=== PATIENT | female | born 1960 | race African-American/Black ===

== ENCOUNTER 2023-09-12 11:23 | Day surgery (SDC) | payer OTHER, SELFPAY ==
[2023-09-12 12:13] VITALS: BP 141/80; PULSE 85; RESP 18; TEMP 36.6; O2SAT 96
[2023-09-12] MEDS: Lactated Ringers 1,000 ML 100 ML IVCONT (12:18)
--- NOTE | 2023-09-12 12:48 | P.CONAN_ITS ---
HPI - Anesthesia Eval Consult details Narrative: for colonoscopy [facility] Past Medical History Medical History GERD (gastroesophageal reflux disease) Osteoarthritis Elevated cholesterol Family History Family history of problems with anesthesia: No Surgical History Surgical History History of surgery History of Hx of tonsillectomy H/O colonoscopy History of Problems with Anesthesia: No Social History Social History (Updated 09/10/23 @ 10:46 by Whitley Gonsales RN) Patient Tobacco Use Status: Current everyday Tobacco user Tobacco use type: Cigarette Cigarettes Per Day: 10 Have you been hit, kicked, punched, or otherwise hurt by someone within the past year? If so, by whom?: No Are you DNR?: No Advance Directives: No Advance Directives Information Provided: Yes Recently lost weight without trying: No Eating poorly because of decreased appetite: No Nutrition Risks: No Nutritional Risk Patient : No Meds Allergies Allergy/AdvReac Type Severity Reaction Status Date / Time penicillin V Allergy Unknown unsure Verified 10/08/15 00:00 Active Medications: Current Medications Lactated Ringer's (Lr) 1,000 mls @ 100 mls/hr IVCONT .Q10H DINH Last Admin: 09/12/23 12:18 Dose: 100 mls/hr Home Medications Medication Instructions Recorded Confirmed Last Taken Type atorvastatin 20 mg tablet 20 mg PO BEDTIME 09/10/23 09/10/23 Unknown History cyclobenzaprine 10 mg tablet 10 mg PO TID PRN Muscle Spasm 09/10/23 09/10/23 Unknown History hydroxyzine HCl 25 mg tablet 25 mg PO TID PRN Anxiety 09/10/23 09/10/23 Unknown History naproxen 500 mg tablet 500 mg PO BID PRN Pain 09/10/23 09/10/23 Unknown History omega 4-sid-vnf-fish oil 1,000 mg 1 cap PO DAILY 09/10/23 09/10/23 Unknown History (120 mg-180 mg) capsule (Fish Oil) omeprazole 20 mg capsule,delayed 20 mg PO DAILY 09/10/23 09/10/23 Unknown History release trazodone 50 mg tablet 50 mg PO BEDTIME 09/10/23 09/10/23 Unknown History Exam Exam Date and Time: September 12, 2023 1248 Height,Weight and Vital Signs: Height 5 ft 2 in Weight 74.389 kg Last Vital Signs Temp 97.8 F 09/12/23 12:13 Pulse 85 09/12/23 12:13 Resp 18 09/12/23 12:13 BP 141/80 H 09/12/23 12:13 Pulse Ox 96 09/12/23 12:13 O2 Del Method Room Air 09/12/23 12:13 Airway Mallampati Class: II TM Dist: <=3cm Neck ROM: Full Denture: Upper Heart: ok Lungs: ok Assessment and Plan Assessment Anesthesia Assessment: Anesthesia Plan Discussed and Chart Reviewed Final Anesthetic Review Family History of Problems with Anesthesia: No History of Problems with Anesthesia: No NPO: Yes ASA Class: II Final Preanesthetic Review: No Changes in Pt Med Stat, Meds/Allgs Chart Reviewed, Consent Obtained/Reviewed and Anes Risks/Benef Reviewed Patient Risk: Intermediate Procedure Risk: Low Anesthetic Plan Anesthetic Plan: MAC: and Agree w/ Assess. and Plan Disposition: Standard PACU
--- NOTE | 2023-09-12 13:10 | MHC.SHP ---
Pre-Procedural Eval Section A Date of Service: 09/12/23 The patient is an INPATIENT: No Changes since office visit: No Cold of Flu in the past 2 weeks, No New Medical Problems, No Changes in Medication and No Patient answered all questions The History & Physical has been completed within 30 days and I have reviewed it.: Yes Section B Chief Complaint: screening Allergies: Allergies Allergy/AdvReac Type Severity Reaction Status Date / Time penicillin V Allergy Unknown unsure Verified 10/08/15 00:00 Plan I have reviewed the history and physical and performed a pertinent physical examination on my patient. No changes have occurred unless specified. Time Spent With Patient Time: Total time managing care of this patient today ____ minutes.
--- NOTE | 2023-09-12 13:44 | PM.OP ---
Brief Operative Note Date of Service: 09/12/23 Pre-op diagnosis: screening Post-op diagnosis: same Procedure: colon Surgeon: Marquis Hdz MD Anesthesia: MAC Was an [employer] Supervisor used for this Procedure?: No Estimated blood loss (mL): 2 Pathology: other Condition: stable Disposition: PACU
[2023-09-12 13:45] VITALS: BP 126/78; PULSE 86; RESP 16; TEMP 36.2; O2SAT 96
[2023-09-12 14:01] VITALS: BP 154/91; PULSE 74; RESP 17; TEMP 36.1; O2SAT 97
--- NOTE | 2023-09-12 16:56 | OP_ITS ---
DATE OF SERVICE: 09/12/2023 SURGEON: Marquis Hdz MD INDICATIONS: Colon cancer screening. PREOPERATIVE DIAGNOSIS: POSTOPERATIVE DIAGNOSIS: PROCEDURE PERFORMED: Colonoscopy to the terminal ileum with biopsy. ESTIMATED BLOOD LOSS: COMPLICATIONS: ANESTHESIA: Monitored anesthesia care. ASSISTANTS: SPECIMENS: DESCRIPTION OF PROCEDURE: History and physical performed. The risks and benefits of the procedure were explained to the patient. Informed consent was obtained. The patient was placed in the left lateral decubitus position. A digital rectal exam was performed and it was found to be normal. The Olympus pediatric video colonoscope was introduced into the rectum and advanced to the cecum. The cecum was identified by transillumination, palpation, identification of ileocecal valve. Examination was performed. The scope was removed. She tolerated the procedure well and was taken to recovery area in stable condition. FINDINGS: The terminal ileum was not examined. The visualized colonic mucosa was within normal limits without evidence of masses or ulcers. A single polyp measuring less than 5 mm was identified at 20 cm from the anal verge. This was removed using a biopsy forceps. No other polyps were identified. Retroflexed examination showed moderate-sized internal hemorrhoids. There was moderate sigmoid diverticulosis with scattered diverticula throughout the remainder of the colon. The quality of prep was good. IMPRESSION: Colon polyp. RECOMMENDATION: Follow up the biopsy results. MD GATO Warren/FARNAZL / [id number]
== END 2023-09-12 14:39 | disposition home or self-care (01) ==
PROVIDERS: PCP Internal Medicine; Visit Provider Internal Medicine Gastroenterology
PROC: 0DJD8ZZ Inspection of Lower Intestinal Tract, Via Natural or Artificial Opening Endoscopic (ICD-10-PCS; CPT 45378; principal; 2023-09-12 13:00)
DX: Z12.11 Encounter for screening for malignant neoplasm of colon (principal); K63.5 Polyp of colon; K64.8 Other hemorrhoids; K21.9 Gastro-esophageal reflux disease without esophagitis; E78.5 Hyperlipidemia, unspecified; M19.90 Unspecified osteoarthritis, unspecified site; Z79.1 Long term (current) use of non-steroidal anti-inflammatories (NSAID); Z79.899 Other long term (current) drug therapy; Z88.0 Allergy status to penicillin; F17.210 Nicotine dependence, cigarettes, uncomplicated
CPT/HCPCS: 45380; 88305

== ENCOUNTER 2024-06-18 12:52 | Outpatient (AMB) | payer OTHER, SELFPAY ==
--- NOTE | 2024-06-18 13:05 | AM.OFFWIN_ITS ---
Intake Vital Signs 06/18/24 13:06 06/18/24 13:28 Height 5 ft 2 in Weight 162 lb BMI 29.6 BP 162/84 H 140/90 H Blood Pressure Location Rt brachial Rt brachial Position Sitting Sitting Pulse 80 Pulse Source Auscultation Temp 98.3 F Temp Source Oral Intake Visit Reasons: Sore on LT Foot Intake Note: pt c/o sore on LT foot. Started with moswuito bite and developed sore Patient Tobacco Use Status: Current everyday Tobacco user Allergies penicillin V Allergy (Unknown, Verified 06/18/24 13:06) unsure Do you need a note to return to daycare/school/sports/work: No HPI HPI Comments History of Present Illness Details Patient is a 63-year-old female complaining of a wound on her left foot that started with a mosquito bite and does not seem to be healing. She said she is using Neosporin and hydrogen peroxide. She denies a history of diabetes. [facility] Medical History (Updated 06/18/24 @ 13:31 by Estrellita Bullard PA-C) GERD (gastroesophageal reflux disease) Osteoarthritis Elevated cholesterol Surgical History History of surgery History of Hx of tonsillectomy H/O colonoscopy Social History (Updated 09/10/23 @ 10:46 by Whitley Gonsales RN) Patient Tobacco Use Status: Current everyday Tobacco user Tobacco use type: Cigarette Cigarettes Per Day: 10 Review of Systems Const All systems reviewed & are unremarkable except as noted in HPI and below Physical Exam Vital Signs: Last Vital Signs Temp 98.3 F 06/18/24 13:06 Pulse 80 06/18/24 13:06 BP 162/84 H 06/18/24 13:06 BMI result Body Mass Index 29.6 Const General: cooperative, healthy appearing, comfortable, no acute distress and well developed Orientation/consciousness: patient oriented x3 Limitations: no limitations Skin Other: medial dorsal aspect of left foot has a 2 cm round, scabbed area. not fluctuant, no warmth, not weeping Neuro General: patient oriented x3 Assessment & Plan Assessment & Plan (1) Scab: Code(s): R23.4 - Changes in skin texture Plan: Recommended using Aquaphor twice daily, recommended stopping the hydrogen peroxide. If wound does not heal, she should follow up with her PCP. Repeat blood pressure was 140 systolic, recommended she follow up with her PCP as last few visit she has had here it has been over 150 systolic. Plan See above Coding Level of Care Code New Pt Level 3 (90265) Diagnoses Scab R23.4
[2024-06-18 13:06] VITALS: BP 162/84; PULSE 80; TEMP 36.8; BMI 29.6
[2024-06-18 13:28] VITALS: BP 140/90
== END 2024-06-18 13:29 | disposition home or self-care (01) ==
PROVIDERS: PCP Internal Medicine; Visit Provider Physician Assistant
DX: R23.4 Changes in skin texture (principal)
CPT/HCPCS: 99203

== ENCOUNTER 2024-07-03 13:39 | Outpatient (AMB) | payer OTHER, SELFPAY ==
--- NOTE | 2024-07-03 14:01 | MHC.OFFWIV ---
Intake Vital Signs 07/03/24 14:02 Height 5 ft 2 in Weight 161 lb BMI 29.4 BP 130/90 H Blood Pressure Location Rt brachial Position Sitting Pulse 65 Pulse Source Pulse Oximeter Pulse Oximetry (%) 98 Oxygen Delivery Method Room Air Intake Visit Reasons: EP- Rash on arms and hands Intake Note: Patient here for rash on palm of hands and are very itchy. started about 1 week ago. Patient Tobacco Use Status: Current everyday Tobacco user Allergies penicillin V Allergy (Unknown, Verified 07/03/24 14:03) unsure Do you need a note to return to daycare/school/sports/work: No HPI HPI Comments History of Present Illness Details Patient is a 63-year-old female complaining of an itchy rash on her right forearm that has been there for about a week. She also noticed secondary rash on the palms of her hands that erupted suddenly a few days ago. It is different from the rash on her forearm. She states that she has these clear, firm, non itchy nodules on her palms and she does not know what it is. She denies any fevers and any new medications. [facility] Medical History (Updated 07/03/24 @ 14:39 by Estrellita Bullard PA-C) GERD (gastroesophageal reflux disease) Osteoarthritis Elevated cholesterol Surgical History History of surgery History of Hx of tonsillectomy H/O colonoscopy Social History (Updated 09/10/23 @ 10:46 by Whitley Gonsales RN) Patient Tobacco Use Status: Current everyday Tobacco user Tobacco use type: Cigarette Cigarettes Per Day: 10 Review of Systems Const All systems reviewed & are unremarkable except as noted in HPI and below Physical Exam Vital Signs: Last Vital Signs Pulse 65 07/03/24 14:02 BP 130/90 H 07/03/24 14:02 Pulse Ox 98 07/03/24 14:02 Oxygen Delivery Method Room Air 07/03/24 14:02 BMI result Body Mass Index 29.4 Const General: cooperative, healthy appearing, comfortable and no acute distress Orientation/consciousness: patient oriented x3 Limitations: no limitations HEENT Head: Yes normal to inspection Eyes General: appearance normal, both eyes and all related structures Resp Effort & Inspection: normal respiratory effort and able to speak in complete sentences Skin Other: A streaky, 3cm linear maculopapular rash with crusted lesions on right forearm. Neuro General: patient oriented x3 Assessment & Plan Assessment & Plan (1) Allergic dermatitis: Code(s): L23.9 - Allergic contact dermatitis, unspecified cause Plan: Recommended using [id number]-[id number] cortisone cream as a very small area of poison homa. As far as the rash on her hands go, I recommended she follow up with her PCP for possibility of a referral to Dermatology Plan See above Coding Level of Care Code New Pt Level 3 (49222) Diagnoses Allergic dermatitis L23.9
[2024-07-03 14:02] VITALS: BP 130/90; PULSE 65; O2SAT 98; BMI 29.4
== END 2024-07-03 14:43 | disposition home or self-care (01) ==
PROVIDERS: PCP Internal Medicine; Visit Provider Physician Assistant
DX: L23.9 Allergic contact dermatitis, unspecified cause (principal)
CPT/HCPCS: 99213

== ENCOUNTER 2024-11-18 15:45 | Emergency (ER) | payer OTHER, SELFPAY ==
[2024-11-18 16:19] VITALS: BP 178/87; PULSE 91; RESP 20; TEMP 36; O2SAT 100; BMI 29.3
--- NOTE | 2024-11-18 16:22 | ECG_ITS ---
Test Reason : HTN Blood Pressure : */* mmHG Vent. Rate : 85 BPM Atrial Rate : 85 BPM P-R Int : 164 ms QRS Dur : 86 ms QT Int : 372 ms P-R-T Axes : 65 -23 41 degrees QTcB Int : 442 ms Normal sinus rhythm Possible Left atrial enlargement Borderline ECG No previous ECGs available Referred By: Evan Saavedra Electronically Signed By: Juan De Los Santos
--- NOTE | 2024-11-18 16:22 | ED_ITS ---
HPI - General Adult General Chief complaint: General Medical Stated complaint: High BP Time Seen by Provider: 11/18/24 20:25 Source: patient Mode of arrival: ambulatory Limitations: no limitations History of Present Illness ED Provider: Evan Saavedra HPI narrative: 64-year-old female history of dermatitis, GERD, cholesterol presents to ED for elevated blood pressures at home. Patient states today systolic was in the 170s. Patient denies any headache, chest pain, shortness of breath, dizziness, slurred speech, facial droop, or paralysis of extremities. Related Data Home Medications ?Medication ?Instructions ?Recorded ?Confirmed atorvastatin 20 mg tablet 20 mg PO BEDTIME 09/10/23 09/10/23 cyclobenzaprine 10 mg tablet 10 mg PO TID PRN Muscle Spasm 09/10/23 09/10/23 hydroxyzine HCl 25 mg tablet 25 mg PO TID PRN Anxiety 09/10/23 09/10/23 naproxen 500 mg tablet 500 mg PO BID PRN Pain 09/10/23 09/10/23 omeprazole 20 mg capsule,delayed 20 mg PO DAILY 09/10/23 09/10/23 release trazodone 50 mg tablet 50 mg PO BEDTIME 09/10/23 09/10/23 Allergies Allergy/AdvReac Type Severity Reaction Status Date / Time penicillin V Allergy Unknown unsure Verified 11/18/24 16:20 Review of Systems 2 Review of Systems: Asymptomatic hypertension. Yes all other systems are reviewed and are negative [facility] Past Medical History Medical History (Updated 11/18/24 @ 20:39 by SARAH Tilley) GERD (gastroesophageal reflux disease) Osteoarthritis Elevated cholesterol Surgical History History of surgery History of Hx of tonsillectomy H/O colonoscopy Social History Social History (Updated 09/10/23 @ 10:46 by Whitley Gonsales RN) Patient Tobacco Use Status: Current everyday Tobacco user Tobacco use type: Cigarette Cigarettes Per Day: 10 Advance Directives: No Advance Directives Information Provided: No Physical Exam ED Vital Signs: Vital Signs - 24 hr 11/18/24 16:19 11/18/24 20:21 11/18/24 20:46 Temperature 96.8 F 98.8 F 98.8 F Pulse Rate 91 85 85 Respiratory Rate 20 16 16 Blood Pressure 178/87 H 179/93 H 179/93 H Pulse Oximetry 100 96 96 Oxygen Delivery Method Room Air Room Air Room Air BMI result Body Mass Index 29.3 Const General: cooperative, healthy appearing, comfortable, no acute distress, well developed, alert, awake and Physically active Orientation/consciousness: patient oriented x3 [facility] Head: Yes normal to inspection, Yes No palpable skull fracture present, Yes normocephalic and Yes atraumatic Ears: hearing grossly normal bilaterally, external ears normal, TM's normal bilaterally, TM normal on the right, TM normal on the left, EAC's normal, mastoids normal and no periauricular adenopathy Throat: Yes posterior oropharynx normal, Yes tonsils normal and Yes uvula midline Eyes General: appearance normal, both eyes and all related structures Neck Neck: Yes normal visual inspection, Yes full ROM, Yes no lymphadenopathy, Yes no meningeal signs, Yes trachea midline, Yes supple, No anterior neck swelling and No tender Chest Chest palpation & inspection: normal inspection of the chest and normal palpation of entire chest wall Resp Effort & Inspection: normal respiratory effort and able to speak in complete sentences Auscultation: clear to auscultation bilaterally Cardio Jugular venous distension: no JVD Heart sounds: S1 normal heart sound present and S2 normal heart sound present GI Inspection: Yes normal to inspection Palpation (GI): Soft to palpation, not firm, nontender, no guarding and not rigid General: Yes no CVA tenderness Back/Spine/Pelvis Back: no CVA tenderness and No back tenderness Skin General skin exam: no rashes or lesions noted, elasticity normal and turgor normal Neuro General: patient oriented x3, gait normal, tone normal, moves all extremities, Normal light touch and pain sensation, no meningeal signs, no focal motor deficits, CN's II-XI intact bilaterally and normal sensation to monofilament Extrem General: Yes normal to inspection, Yes full ROM and Yes capillary refill normal Psych Appearance: grossly normal, well kempt and not disheveled Course Course Course Narrative: RME: 64-year-old female presents to ED for asymptomatic hypertension. Patient states her blood pressure today was 170/87. Patient was informed by her PCP to document her blood pressure so he can be made aware in case need to be started on med but patient never was compliant. Once again patient is asymptomatic. We will do EKG basic labs. Medical Decision Making Medical Decision Making MDM Narrative: 64-year-old female presents to the ED for evaluation for asymptomatic elevated blood pressure. Patient's blood pressure systolic 170s. Patient denies any headache, chest pain, shortness of breath, abdominal pain or any neuro symptoms. Not suspecting hypertensive urgency/emergency. EKG negative STEMI. troponin without chest pain negative. Kidney function is normal. Patient informed to record her blood pressures 2 to 3 times a day to see her primary care provider so he/she can start her on medication. This is a first-time seen patient in the ED with systolic blood pressures in the 170s. Patient informed we would not prescribe any hypertensive medication to the possibility of white coat hypertension but recommend her calling her primary care doctor tomorrow to schedule an earlier appointment record her blood pressures so her primary care provider can seen them and decide if she need HTN meds.. Not suspecting SD, PE, stroke, renal arterial occlusion, kidney failure, or any other life threatening etiologies. Patient explained worrisome signs and informed to return to the ED immediately. NIH score is 0. Differential Diagnosis Differential Diagnoses: The differential diagnosis associated with the presentation includes Admission/Observation Consideration of admission/observation: Escalation of care including admission/observation considered Lab Data [facility] Lab Attestation statement: I reviewed the patient's lab results. 11/18/24 16:46 11/18/24 16:46 Labs: Lab Results 11/18/24 11/18/24 Range/Units 16:46 19:23 WBC 11.0 H (4.8-10.8) X10*3/uL RBC 4.48 (4.20-5.50) X10*6/uL Hgb 13.2 (12.0-16.0) g/dl Hct 38.0 (37.0-47.0) % MCV 84.8 (80.0-98.0) fL MCH 29.5 (27.0-33.0) pg MCHC 34.7 (31.0-35.0) g/dl RDW 16.8 H (11.0-16.0) % Plt Count 269 (160-400) X10*3/uL MPV 10.2 (9.4-12.3) fL Immature Gran % (Auto) 0.3 (0.0-0.4) % Neut % (Auto) 67.9 (45-73) % Lymph % (Auto) 22.9 (20-40) % [place] % (Auto) 5.3 (2-11) % Eos % (Auto) 3.0 (0-4) % Baso % (Auto) 0.6 (0-2) % Lymph # (Auto) 2.5 (1.2-4.9) X10*3/uL [place] # (Auto) 0.6 (0.1-1.2) X10*3/uL Eos # (Auto) 0.3 (0.0-0.4) X10*3/uL Baso # (Auto) 0.1 (0.0-0.2) X10*3/uL Abs Immat Gran (auto) 0.03 (0.00-0.03) X10*3/uL Absolute Neuts (auto) 7.5 (2.0-8.3) x10*3/uL Absolute Nucleated RBC 0.000 (0.0-0.012) X10*3/uL Nucleated RBC % (auto) 0.0 (0.0-0.2) /100WBC PT 11.2 (10.9-12.4) SEC INR 1.0 (0.9-1.1) APTT 29.5 (26.0-36.8) SEC Sodium 143 (135-145) mmol/L Potassium 3.4 (3.3-5.1) mmol/L Chloride 112 H (96-108) mmol/L Carbon Dioxide 25 (22-29) mmol/L Anion Gap 9 L (12-20) BUN 9 (9-16) mg/dL Creatinine 0.71 (0.5-1.4) mg/dL Estim Creat Clear Calc 75.7 Estimated GFR > 60 Random Glucose 98 (60-115) mg/dL Calcium 9.3 (8.4-10.2) mg/dL Total Bilirubin 0.6 (0.0-1.0) mg/dL AST 24 (5-31) U/L ALT 12 (0-31) U/L Alkaline Phosphatase 95 (39-117) U/L Troponin I High Sens < 2.7 (<3.5-17.0) ng/L Total Protein 7.5 (6.5-8.0) g/dL Albumin 4.2 (3.5-5.0) g/dL Independent Interpretation I performed an independent interpretation of an: EKG (Negative STEMI) Independent Historian Clinical information obtained from an independent historian. History obtained from or confirmed by: Other (patient) Discharge Plan Discharge Clinical Impression: Elevated blood pressure reading Patient Disposition: Home, Self-Care Instructions: Hypertension (ED) Additional Instructions: You have elevated blood pressure without any symptoms. Due to this being 1st time with elevated blood pressure our ED who will not start you on any blood pressure medication. Recommend you recording your blood pressure at least 2-3 times per day and call your primary care provider tomorrow for earlier appointment, and if your blood pressure remains elevated then your primary care provider should start you on blood pressure medications. Return to the ED immediately if you have headache, blurry vision, nausea, vomiting, chest pain, shortness of breath, slurred speech, facial droop, paralysis of extremities, loss of vision, dizziness, or any other concerning symptoms. Your EKG and blood work was reassuring. Your blood pressure reading during ED visit were 178/87 and 179/93 Prescriptions: No Action cyclobenzaprine 10 mg Tablet 10 mg PO TID PRN (Reason: Muscle Spasm) atorvastatin 20 mg Tablet 20 mg PO BEDTIME trazodone 50 mg Tablet 50 mg PO BEDTIME omeprazole 20 mg Capsule,Delayed Release(Dr/Ec) 20 mg PO DAILY hydroxyzine HCl 25 mg Tablet 25 mg PO TID PRN (Reason: Anxiety) naproxen 500 mg Tablet 500 mg PO BID PRN (Reason: Pain) Stand Alone Forms: Work/School Release Interventions: ED Discharge Assessment Last Done: 11/18/24 20:46 Discharge Date/Time: 11/18/24 20:48 Print Language: Mongolian
[2024-11-18 16:56] LABS: MANUAL DIFF FLAG NO
[2024-11-18 16:58] LABS: Basophils Absolute Auto 0.1 X10*3/uL (0.0-0.2); Basophils Percent Auto 0.6 % (0-2); Eosinophils Absolute Auto 0.3 X10*3/uL (0.0-0.4); Hemoglobin 13.2 g/dl (12.0-16.0); Imm Gran Abs Auto 0.03 X10*3/uL (0.00-0.03); Imm Gran Pct Auto 0.3 % (0.0-0.4); Lymphocytes Absolute Auto 2.5 X10*3/uL (1.2-4.9); Lymphocytes Percent Auto 22.9 % (20-40); Mean Corpuscular HGB Conc 34.7 g/dl (31.0-35.0); Mean Corpuscular Hemoglobin 29.5 pg (27.0-33.0); Mean Corpuscular Volume 84.8 fL (80.0-98.0); Mean Platelet Volume 10.2 fL (9.4-12.3); Monocytes Absolute Auto 0.6 X10*3/uL (0.1-1.2); Monocytes Percent Auto 5.3 % (2-11); Neutrophils Absolute Auto 7.5 x10*3/uL (2.0-8.3); Neutrophils Percent Auto 67.9 % (45-73); Platelet Count 269 X10*3/uL (160-400); Red Blood Count 4.48 X10*6/uL (4.20-5.50); Red Cell Distribution Width 16.8 % (11.0-16.0)
[2024-11-18 17:12] LABS: Alanine Aminotransferase 12 U/L (0-31); Albumin Level 4.2 g/dL (3.5-5.0); Alkaline Phosphatase 95 U/L (39-117); Anion Gap 9 (12-20); Aspartate Amino Transferase 24 U/L (5-31); Bilirubin Total 0.6 mg/dL (0.0-1.0); Blood Urea Nitrogen 9 mg/dL (9-16); Calcium 9.3 mg/dL (8.4-10.2); Carbon Dioxide 25 mmol/L (22-29); Chloride 112 mmol/L (96-108); Creatinine Clr Calc Pharmacy 75.7; Estimated Glomerular Filt Rate > 60; Glucose Random 98 mg/dL (60-115); Potassium 3.4 mmol/L (3.3-5.1); Sodium 143 mmol/L (135-145); Total Protein 7.5 g/dL (6.5-8.0)
[2024-11-18 17:19] LABS: Troponin-I High Sensitivity < 2.7 ng/L (<3.5-17.0)
[2024-11-18 19:38] LABS: Prothrombin Time 11.2 SEC (10.9-12.4)
[2024-11-18 19:41] LABS: Partial Thromboplastin Time 29.5 SEC (26.0-36.8)
[2024-11-18 20:21] VITALS: BP 179/93; PULSE 85; RESP 16; TEMP 37.1; O2SAT 96
[2024-11-18 20:46] VITALS: BP 179/93; PULSE 85; RESP 16; TEMP 37.1; O2SAT 96
== END 2024-11-18 20:48 | disposition home or self-care (01) ==
PROVIDERS: Physician Assistant; Emergency Provider Internal Medicine; PCP Internal Medicine
DX: R03.0 Elevated blood-pressure reading, without diagnosis of hypertension (principal); F17.210 Nicotine dependence, cigarettes, uncomplicated
CPT/HCPCS: 36415; 80053; 84484; 85025; 85610; 85730; 93005; 99283

== ENCOUNTER → 2024-11-18 16:22 | Outpatient (BNV) | payer OTHER, SELFPAY | PROVIDERS: Emergency Provider Internal Medicine; PCP Internal Medicine; Visit Provider Internal Medicine Cardiovascular Disease | DX: I10 Essential (primary) hypertension (principal) | CPT/HCPCS: 93010 ==

== ENCOUNTER 2025-04-22 12:45 | Outpatient (REF) | payer OTHER, SELFPAY ==
--- OUTSIDE RECORDS SUMMARY | 2025-04-23 13:47 | XMS_ITS | Patient Health Record ---
Author Organization [facility] Address [address] [place] [id number] Care Team Providers Care Veneer Splicer Name Role Phone Juventino Rios MD Primary Care Provider Marquis Reyna Jr Unavailable [phone] Allergies Allergen (clinical drug ingredient) Drug/Non Drug Allergy documented on EMR Reaction Allergy Type Onset Date Status Penicillin Unknown Drug Allergy Active Reason For Referral No Information Medications Medication SIG (Take, Route, Frequency, Duration) Notes Start Date End Date Status Atorvastatin Calcium 20 MG Oral for 90 Active Cyclobenzaprine HCl 10 MG TAKE 1 TABLET BY MOUTH THREE TIMES A DAY NEEDED FOR MUSCLE SPASM Oral for 30 Active traZODone HCl 50 MG Oral for 90 Active Omeprazole 20 MG Oral for 90 A ctive MiraLax (colon prep) 17 GM/SCOOP mixed with Gatorade or Crystal Light Orally begin at 5:00 p.m. the day before the procedure for 1 day 08/16/2023 Active Naproxen 500 MG Oral for 30 Ac tive Betamethasone Valerate 0.1 % APPLY TO AF FECTEDED AREAS 2 TIMES DAILY X 2 WEEKS THEN ON AND OFF NEEDED FOR FLARES External for 30 Active hydrOXYzine HCl 25 MG Oral for 30 Active Fish Oil 1000 MG TAKE 1 CAPSULE BY [facility] EVERY DAY Oral for 30 Active Social History Tobacco Use: Social History Observation Description Date Details (start date - stop date) Current Smoker NA - NA Tobacco Use/Smoking Question Answer Notes Patient is a current smoker How often do you smoke cigarettes? every day How many cigarettes a day do you smoke? 6-10 How soon after you wake up do you smoke your fir st cigarette? 6-30 minutes Are you interested in quitting? Not ready to isidro t Problems Problem Type SNOMED Code ICD Code Onset Dates Problem Status W/U Status Risk Notes Problem 968362249 Colon cancer screening (Z12.11) Active confirmed Problem 536631829 penitentiary (current) use of non-steroidal anti-inflammatorie s (NSAID) (Z79.1) Active confirmed Problem [id number] Long-term curren t use of high risk medication other than anticoagulant (Z79.899) Active confirmed Plan Of Treatment Future Test Test Name Order Date COLONOSCOPY 01/23/2013 COLONOSCOPY 08/16/2023 Insurance Providers Payer Name Payer Address Payer Phone Subscriber Number Group Number Insured Name Patient Relationship to Insured Coverage Start Date Coverage End Date [facility] [address] [address] [place], [place] [id number] SHANITA LIAO Self - patient is the insured [place] [address] [place] [address] [id number] SHANITA LIAO Self - patient is the insured Medical (General) History Medical History History ICD Code Osteoarthritis Hyperlipidemia Gastroesophageal reflux disease Colonoscopy 03/17, normal, ten-year follo wup Surgical History Surgery Date(Month/Year) tonsillectomy c section Uterine cyst surgery
== END 2025-04-22 12:46 | disposition home or self-care (01) ==
LOC: HO.HOSX 12:45
PROVIDERS: Visit Provider Orthopaedic Surgery
DX: Z13.89 Encounter for screening for other disorder (principal)

== ENCOUNTER 2025-06-30 08:08 | Outpatient (REF) | payer OTHER, SELFPAY ==
--- OUTSIDE RECORDS SUMMARY | 2025-07-02 08:33 | XMS_ITS | Encounter Summary ---
Author Organization [employer] [facility] Address [address] [place] [address] Care Team Providers Care Ward Secretary Name Role Phone Unavailable Primary Care Provider Unavailabl e Encounter Details Date Type Department Care Team (Latest Contact Info) Description 06/11/2019 Abstract [facility] CONVERSIONS Dental, Provider, DDS Social History Tobacco Use Types Packs/Day Years Used Date Smoking Tobacco: Never Assessed Comments Unknown Sex and Gender Information Value Date Recorded Sex Assigned at Female 09/04/2022 10:27 AM EDT Legal Sex Female 10:27 AM EDT Gender Identity Not on file Sexual Orientation Not on file documented as of this encounter Plan of Treatment Not on file documented as of this encounter Visit Diagnoses Not on filedocumented in this encounter
--- OUTSIDE RECORDS SUMMARY | 2025-07-02 08:33 | XMS_ITS | Patient Health Record ---
Author Organization [facility] Address [address] [place] [phone] Care Team Providers Care Police Crime Scene Technician Name Role Phone Juventino Rios MD Primary Care Provider Marquis Reyna Jr Unavailable Allergies Allergen (clinical drug ingredient) Drug/Non Drug [...] MG TAKE 1 CAPSULE BY 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 termite technician (current) use of non-steroidal anti-inflammatorie s (NSAID) (Z79.1) Active confirmed Problem [id number] Long-term curren t use of high risk medication other than anticoagulant (Z79.899) Active confirmed Plan Of Treatment Future Test Test Name Order Date COLONOSCOPY 01/23/2013 COLONOSCOPY 08/16/2023 Insurance Providers Payer Name Payer Address Payer Phone Subscriber Number Group Number Insured Name Patient Relationship to Insured Coverage Start Date Coverage End Date [facility] [address] [address] [place], [place] [id number] SHANITA LIAO Self - patient is the insured [place] [address] [place] [address] [id number] SHANITA LIAO Self - patient is the insured Medical (General) History Medical History History ICD Code Osteoarthritis Hyperlipidemia Gastroesophageal reflux disease Colonoscopy 03/17, normal, ten-year follo wup Surgical History Surgery Date(Month/Year) tonsillectomy c section Uterine cyst surgery
--- OUTSIDE RECORDS SUMMARY | 2025-07-02 08:33 | XMS_ITS | Clinical Summary ---
Author Organization [employer] Address [address] [place] [address] Care Team Providers Care Community Development Worker Name Role Phone Unavailable Primary Care Provider Unavailabl e Social History Tobacco Use Types Packs/Day Years Used Date Smoking Tobacco: Never Assessed Comments Unknown Sex and Gender Information Value Date Recorded Sex Assigned at Female 09/04/2022 10:27 AM EDT Legal Sex Female 10:27 AM EDT Gender Identity Not on file Sexual Orientation Not on file Plan of Treatment Health Maintenance Due Date Last Done Comments CT Colonography 1961 Colonoscopy 1961 Colorectal Cancer Screening 1961 Depression Screening 1961 FIT DNA/Cologuard 1961 FIT 1961 FOBT 1961 Sigmoidoscopy 1961 Disability Screening 1961 Alcohol/Substance Use Screening 1973 Tobacco Screening 1973 DTaP/Tdap/Td Vaccines (1 - Tdap) 1980 Pap Smear 1982 Cervical Cancer Screening 1991 HPV/Cotest 1991 Mammogram 2001 Pneumococcal Vaccine: 50+ Ye ars (1 of 1 - PCV) 2011 Zoster Vaccines (1 of 2) 2011 COVID-19 Vaccine ( - 2023-2 5 season) 2024 Influenza Vaccine (#1) 2025 RSV Patients and Pa tients Aged 60 years or older (1 - 1-dose 75+ series) 2036 HIB Vaccines Aged Out No longer eligi ble based on patient's age to complete this topic HPV Vaccines Aged Out No longer eligi ble based on patient's age to complete this topic Hepatitis A Vaccines Aged Out No long er eligible based on patient's age to complete this topic Hepatitis B Vaccines Aged Out No long er eligible based on patient's age to complete this topic IPV Vaccines Aged Out No longer eligi ble based on patient's age to complete this topic Meningococcal B Vaccine Aged Out No l onger eligible based on patient's age to complete this topic Meningococcal Vaccine Aged Out No wilber malathi eligible based on patient's age to complete this topic RSV under 20 months Aged Out No longe r eligible based on patient's age to complete this topic Rotavirus Vaccines Aged Out No longer eligible based on patient's age to complete this topic
--- OUTSIDE RECORDS SUMMARY | 2025-07-02 08:33 | XMS_ITS ---
Author Name [facility] Organization Unknown Care Team Organization Name Specialty Phone Email Start Date End Da te [facility] ANN SILVEIRA Primary Care 09/12/2022
--- OUTSIDE RECORDS SUMMARY | 2025-07-02 08:33 | XMS_ITS | Clinical Summary ---
Author Organization [facility] [address] [facility] Address [address] [place] [address] Phone Care Team Providers Care Healthcare Management Consultant Name Role Phone Juventino Rios MD Primary Care Provider [phone] Allergies Active Allergy Reactions Criticality Noted Date Comments Penicillins 04/09/2014 Was told when she was a child Medications tacrolimus (PROTOPIC) 0.1 % ointment APPLY ONCE TO TWICE DAILY TO THE AFFECTED AREAS OF [place] 5 Active triamcinolone (KENALOG) 0.1 % cream PLEASE SEE ATTACHED FOR DETAILED DIRECTIONS 5 Active omeprazole (PriLOSEC) [address] capsule TAKE 1 CAPSULE BY MOUTH EVERY DAY 90 capsule 1 5 Active atorvastatin (LIPITOR) 20 mg tablet TAKE 1 TABLET BY MOUTH EVERY DAY 90 tablet 1 5 Active traZODone (DESYREL) 50 mg tablet TAKE 1 TABLET BY MOUTH EVERYDAY AT BEDTIME 90 tablet 1 5 Active Ventolin HFA 90 mcg/actuation inhaler 5 Active doxycycline (VIBRAMYCIN) 100 mg capsule 5 Active cefpodoxime (VANTIN) 200 mg tablet 5 Active predniSONE (DELTASONE) 20 mg tablet 5 Active cyclobenzaprine (FLEXERIL) 10 mg tablet TAKE 1 TABLET BY MOUTH THREE TIMES A DAY NEEDED FOR MUSCLE SPASM 90 tablet 5 Active amLODIPine (NORVASC) 10 mg tablet Take 1 tablet (10 mg total) by mouth 1 (one) time each day. 90 each 1 5 Active naproxen (NAPROSYN) 500 mg tablet TAKE 1 TABLET BY MOUTH TWICE A DAY NEEDED FOR MILD PAIN 180 tablet 1 5 Active fluocinonide (LIDEX) 0.05 % ointment Apply to are bid 4 06/19/20 25 Active Problems Problem Noted Date Diagnosed Date Primary hypertension 12/31/2024 Enlarged uterus 06/05/2022 Overview (10/15/2024): Last Assessment & Plan: Possible fibroids. Will obtain pelvic US. Obesity (BMI 30.0-34.9) 12/01/2020 Insomnia 09/07/2017 Pruritus 09/07/2017 Chronic low back pain without sciatica 7 Mixed hyperlipidemia 09/07/2017 Eczema 02/01/2017 Palpitations 07/05/2015 GERD (gastroesophageal reflux disease) 4 Overview (10/15/2024): Normal EGD on PPI rx 07/27/2014. Resolved Problems Problem Noted Date Diagnosed Date Resolved Date Elevated BP without diagnosis of hypertension 01/17/20 24 12/31/2024 Overview (10/15/2024): Last Assessment & Plan: Referred to PCP for evaluation and management. Immunizations Name Administration Dates Next Due Influenza Quadravalent, MDCK , 0.5ml, preservative free (Flucelvax) 6mo and older 08/04/2021,07/25/2018 Influenza Quadravalent, MDCK , 0.5ml, with preservative (Flucelvax) 6mo and older 10/02/2023,07/04/2020 Influenza trivalent, 0.5mL ( Fluad) 65yo and older 07/05/2022 Influenza trivalent, 0.5mL, preservative free (Fluarix; FluLaval; Fluzone) ages 6mo and older (Afluria) 3 years and older 08/01/2016 Influenza, Unspecified 07/30/2024 Moderna SARS-CoV-2 COVID-19, mRNA, LNP-S, preservative free 07/30/2024 Pneumococcal polysaccharide 23 valent (Pneumovax 23) 2yo and older 12/11/2023 Tdap Tetanus diptheria acell ular pertussis (Boostrix; Adacel) 7yo and older 07/05/2015 Zoster recombinant (Shingrix ) 19yo and older 07/05/2022,06/22/2022,03/16/2022 Surgical History Surgery Date Site/Laterality Comments SECTION PROCEDURE: HISTORICAL TONSILLECTOMY PROCEDURE: HISTORICAL TONSILLECTOMY TUBAL LIGATION PROCEDURE: HISTORICAL TUBAL LIGATION COLONOSCOPY 03/19/2013 PROCEDURE: HISTORICAL COLONOSCOPY; COMMENT: [facility]; Dr. Marquis Hdz; No polyps. ESOPHAGOGASTRODUODENOSCOPY 07/27/2014 PROCEDURE: SC ESOPHAGOGASTRODUODENOSCOPY TRANSORAL DIAGNOSTIC; COMMENT: normal on PPI rx. OTHER SURGICAL HISTORY PROCEDURE: HISTORY OTHER; COMMENT: Per patient abnormal Pap in 1978 that required surgical procedure to remove precancerous tissue. Medical History Medical History Date Comments GERD (gastroesophageal reflux disease) DX:GERD (gastroesophageal reflux disease) Lumbar disc disease DX:Lumbar di sc disease Family History Medical History Relation Name Comments Heart attack Father Diabetes Mother Hypertension Mother Breast cancer Neg Hx Cancer of Small Bowel Neg Hx Colon cancer Neg Hx Kidney cancer Neg Hx Ovarian cancer Neg Hx Pancreatic cancer Neg Hx Uterine cancer Neg Hx Relation Name Status Comments Brother 1 Alive Brother 2 Alive Brother 3 Alive Daughter 1 Alive Daughter 2 Alive Daughter 3 Alive Daughter 4 Alive Father Maternal Grandfather Maternal Grandmother Mother Paternal Grandfather Paternal Grandmother Son Alive Social History Tobacco Use Types Packs/Day Years Used Date Smoking Tobacco: Every Day Cigarettes Smokeless Tobacco: Never Tobacco Cessation:Ready to Q uit: Not Asked; Counseling Given: Not Answered Alcohol Use Standard Drinks/Week Comments Yes 0 (1 standard drink = 0.6 oz pur e alcohol) Comments No Sex and Gender Information Value Date Recorded Sex Assigned at Not on file Legal Sex Female 11:56 PM EST Gender Identity Not on file Sexual Orientation Not on file Obstetrics History Para Term AB IAB SAB Ectopic Multiple Livin g Live Births 5 5 5 5 Date Outcome GA Total Labor Labor/2nd/3rd Weight Sex Type Anes PTL Julieta A1 A5 Name Clin Term Term Term Term Term Last Filed Vital Signs Vital Sign Reading Time Taken Comments Blood Pressure 124/76 02/10/2025 10:47 AM EDT Pulse 84 02/10/2025 10:47 AM EDT Temperature 36.9 C (98.5 F) 02/10/2025 10:47 AM EDT Respiratory Rate 14 02/10/2025 10:47 AM EDT Oxygen Saturation 94% 02/10/2025 10:47 AM EDT @ rest, R.A. Inhaled Oxygen Concentration - - Weight 73.9 kg (163 lb) 02/10/2025 10:47 AM EDT Height 157.5 cm (5' 2 ) 02/10/2025 10:47 AM EDT Body Mass Index 29.81 02/10/2025 10:47 AM EDT Plan of Treatment Upcoming Encounters Date Type Department Care Team (Late st Contact Info) Description 08/21/2025 1:00 PM EDT Office Visit Adult Medicine [facility] [address] [place] [phone] Juventino Rois MD [address] [place] [phone] Health Maintenance Due Date Last Done Comments HIV Screening 10/14/2022 Social Influencers of Health Screening 10/14/2022 COVID-19 Vaccine ( season) 2024 07/30/2024, 10/02/2023, 04/27/2022, Additional history exists Depression Screening 11/05/2024 06/24/2024 Pneumococcal Vaccine: 50+ Years (2 of 2 - PCV) 12/11/2024 12/11/2023 DTaP,Tdap,and Td Vaccines (2 - Td or Tdap) 07/05/2025 07/05/2015 Influenza Vaccine (#1) 2025 , 10/02/2023, 07/05/2022, Additional history exists Hypertension/CHF/CAD Annual BMP Blood Test 02/20/2026 02/20/2025, 06/24/2024, 06/24/2024 Breast Cancer Screening 03/18/2027 03/18/20, 03/05/2024, 03/05/2024, Additional history exists Cervical Cancer Screening: HPV 01/16/2029 01/17/2024 Cholesterol Screening (Lipid Panel) 02/20/2030 02/20/2025, 06/24/2024, 06/24/2024 Colorectal Cancer Screening: Colonoscopy 09/12/2033 09/12/2023 Hepatitis C Screening Completed 07/13/2017 Zoster Vaccines Completed 07/05/2022, 06/05, 03/16/2022 RSV Immunization Adult Patients Completed 12/11/2023 HIB Vaccines Aged Out No longer eligi [...] on patient's age to complete this topic MMR Vaccines Aged Out No longer eligi ble based on patient's age to complete this topic Meningococcal ACWY Vaccine Aged Out N o longer eligible based on patient's age to complete this topic Meningococcal B Vaccine Aged Out No l onger eligible based on patient's age to complete this topic RSV Immunization Patients Under 20 months Aged Out No longer eligible based on patient's age to complete this topic Varicella Vaccines Aged Out No longer eligible based on patient's age to complete this topic Procedures Procedure Name Priority Date/Time Associated Diagnosis Comments MG MAMMO DIGITAL SCREENING W JONATHAN BILAT Routine 03/18/2025 4:03 PM EDT Encounter for screening mammogram for breast cancer COMPREHENSIVE METABOLIC PANEL Routine 02/20/2025 11:33 AM EDT Encounter for long-term (current) use of medications LIPID PANEL WITH REFLEX TO DIRECT LDL Routine 02/20/2025 11:33 AM EDT Pure hypercholesterolemia DEPRESSION SCREENING Routine 06/24/2024 HPV Routine 01/17/2024 COLONOSCOPY Routine 09/12/2023 HEPATITIS C SCREENING Routine 07/13/2017 from Last 3 Months or Most Recently Relevant to Health Maintenance Results * MG Mammo Digital Screening w Jonathan bilat (03/18/2025 4:03 PM EDT) Anatomical Region Laterality Modality Breast Bilateral Mammography 03/19/2025 9:27 AM EDT Impressions 03/19/2025 9:30 AM EDT BILATERAL BREASTS: Negative, no evidence of malignancy. Normal interval follow- up is recommended in 12 months. BREAST DENSITY: B - There are scattered areas of fibroglandular density. BI-RADS CATEGORY: 1 - NEGATIVE RECOMMENDATION: Screening bilateral mammogram is recommended in 1 year. Mammo Location: [facility], [address] [place] [address], [id number], . -------- FINAL REPORT -------- Dictated By: Delfina Mari Dictated Date: 03/19/2025 09:27 ET Assigned Physician: Delfina Mari Reviewed and Electronically Signed By: Delfina Mari Signed Date: 03/19/2025 09:30 ET Workstation ID: [id number] Transcribed By: Self Edit Transcribed Date: 03/19/2025 09:28 ET Narrative 03/19/2025 9:30 AM EDT STUDY: Bilateral screening mammography with tomosynthesis and CAD TECHNIQUE: Bilateral full-field digital screening mammography is obtained and read in conjunction with computer-aided detection. Tomosynthesis as well as 2-D C view imaging were obtained. COMPARISON: Comparison made to multiple prior, most recent March 05, 2024, and most remote January 18, 2017. BILATERAL BREASTS: No significant masses, suspicious calcifications or other abnormalities are seen in either breast. Procedure Note Delfina Mari MD - 03/19/2025 STUDY: Bilateral screening mammography with tomosynthesis and CAD TECHNIQUE: Bilateral full-field digital screening mammography is obtainedand read in conjunction with computer-aided detection. Tomosynthesis aswell as 2-D C view imaging were obtained. COMPARISON: Comparison made to multiple prior, most recent March 05, 2024,and most remote January 18, 2017. BILATERAL BREASTS: No significant masses, suspicious calcifications orother abnormalities are seen in either breast. IMPRESSION: BILATERAL BREASTS: Negative, no evidence of malignancy. Normal intervalfollow-up is recommended in 12 months. BREAST DENSITY: B - There are scattered areas of fibroglandular density. BI-RADS CATEGORY: 1 - NEGATIVE RECOMMENDATION: Screening bilateral mammogram is recommended in 1 year. Mammo Location: [facility], [address] [place] [address], [id number], . -------- FINAL REPORT -------- Dictated By: Delfina Mari Dictated Date: 03/19/2025 09:27 ET Assigned Physician: Delfina Mari Reviewed and Electronically Signed By: Delfina Mari Signed Date: 03/19/2025 09:30 ET Workstation ID: [id number] Transcribed By: Self Edit Transcribed Date: 03/19/2025 09:28 ET Juventino Rios MD IM BI PROCEDURES Final Result * (ABNORMAL) Lipid panel with reflex to direct LDL (02/20/2025 11:33 AM EDT) Cholesterol 167 0 - 200 mg/dL LAB CHEMISTRY METHOD 02/20/2025 5:03 PM EDT [facility] Triglycerides 214(H) 0 - 150 mg/dL LAB CHEMISTRY METHOD 02/20/2025 5:03 PM EDT [facility] HDL 53 >=40 mg/dL LAB CHEMISTRY METHOD 02/20/2025 5:03 PM EDT [facility] LDL Calculated 71 0 - 100 mg/dL LAB CHEMISTRY METHOD 02/20/2025 5:03 PM EDT [facility] VLDL Cholesterol Pato 42.8 mg/dL LAB CHEMISTRY METHOD 02/20/2025 5:03 PM [facility] Non HDL Chol. (LDL+VLDL) 114 <145 mg/dL LAB CHEMISTRY METHOD 02/20/2025 5:03 PM [facility] Chol/HDL Ratio 3.2 0.0 - 4.4 LAB CHEMISTRY METHOD 02/20/2025 5:03 PM [facility] Blood Venous blood specimen / Unknown Venipuncture / Unknown 02/20/2025 11:33 AM EDT 02/20/2025 11:33 AM EDT us Juventino Rios MD LAB BLOOD ORDERABLES Final Resu lt [facility] [address] [place] [address], * Comprehensive metabolic panel (02/20/2025 11:33 AM EDT) Sodium 139 133 - 145 mmol/L LAB CHEMISTRY METHOD 02/20/2025 5:03 PM [facility] Potassium 4.2 3.5 - 5.5 mmol/L LAB CHEMISTRY METHOD 02/20/2025 5:03 PM [facility] Chloride 108 96 - 110 mmol/L LAB CHEMISTRY METHOD 02/20/2025 5:03 PM [facility] CO2 24 21 - 32 mmol/L LAB CHEMISTRY METHOD 02/20/2025 5:03 PM [facility] Anion Gap 7 3 - 11 LAB CHEMISTRY METHOD 02/20/2025 5:03 PM [facility] Glucose 94 70 - 100 mg/dL LAB CHEMISTRY METHOD 02/20/2025 5:03 PM [facility] BUN 12 5 - 25 mg/dL LAB CHEMISTRY METHOD 02/20/2025 5:03 PM [facility] Creatinine 0.75 0.50 - 1.10 mg/dL LAB CHEMISTRY METHOD 02/20/2025 5:03 PM [facility] eGFR 90 >=60 mL/min/1. 73m2 LAB CHEMISTRY METHOD 02/20/2025 5:03 PM [facility] Comment:Calculation based on the Chronic Kidney Disease Epidemiology Collaboration (CKD-EPI) equation refit without adjustment for race. BUN/Creatinine Ratio 16.0 LAB CHEMISTRY METHOD 02/20/2025 5:03 PM [facility] Calcium 9.2 8.5 - 10.5 mg/dL LAB CHEMISTRY METHOD 02/20/2025 5:03 PM [facility] AST (SGOT) 17 10 - 42 unit/L LAB CHEMISTRY METHOD 02/20/2025 5:03 PM [facility] ALT (SGPT) 16 10 - 60 unit/L LAB CHEMISTRY METHOD 02/20/2025 5:03 PM [facility] Alkaline Phosphatase 111 42 - 121 unit/L LAB CHEMISTRY METHOD 02/20/2025 5:03 PM [facility] Total Protein 7.7 6.0 - 8.0 g/dL LAB CHEMISTRY METHOD 02/20/2025 5:03 PM [facility] Albumin 3.8 3.2 - 5.0 g/dL LAB CHEMISTRY METHOD 02/20/2025 5:03 PM [facility] Total Bilirubin 0.5 0.0 - 1.4 mg/dL LAB CHEMISTRY METHOD 02/20/2025 5:03 PM [facility] Blood Venous blood specimen / Unknown Venipuncture / Unknown 02/20/2025 11:33 AM EDT 02/20/2025 11:33 AM EDT us Juventino Rios MD LAB BLOOD ORDERABLES Final Resu lt [facility] [address] [place] [address], * Depression Screening (06/24/2024) Depression Screening Abstracted Historical Provider HEALTH MAINTENANCE Final Result * Cervical Cancer Screening: HPV (01/17/2024) Pathologist [facility] Cervical Cancer Screening: HPV No interpretation , abstracted Historical Provider HEALTH MAINTENANCE Final Result * Colonoscopy (09/12/2023) Pathologist [facility] Colonoscopy No interpretation , abstracted Anatomical Region Laterality Modality Other Historical Provider HEALTH MAINTENANCE Final Result * Hepatitis C Screening (07/13/2017) Pathologist [facility] Hepatitis C Screening Abstracted Historical Provider HEALTH MAINTENANCE Final Result from Last 3 Months or Most Recently Relevant to Health Maintenance Insurance [facility] [employer] Advance Directives Documents on File Type Date Recorded Patient Rail Track Maintainer Expl anation Health Care Decision (hx) 09/29/2022 HE ALTH CARE PROXY Care Teams Healthcare Management Consultant Relationship Specialty Start Date End Date Juventino Rios MD [address] [place] [phone] PCP - General Internal Medicine 12/29/13
== END 2025-06-30 08:09 | disposition home or self-care (01) ==
LOC: HO.HOSX 08:08
PROVIDERS: Visit Provider Orthopaedic Surgery
DX: Z13.89 Encounter for screening for other disorder (principal)